=== PATIENT | male | born 1985 | race African-American/Black ===

== ENCOUNTER 2016-09-21 13:09 | Emergency (ER) | payer MEDICAID ==
[~2016-09-21] VITALS: Ht 175.3 cm; Wt 87.0 kg
[2016-09-21 13:41] VITALS: BP 108/59
== END 2016-09-21 17:03 | disposition left against medical advice (07) ==
LOC: ER 16:53
DX: Z53.21 Procedure and treatment not carried out due to patient leaving prior to being seen by health care provider (principal)